=== PATIENT | male | born 1960 | race Caucasian/White ===

== ENCOUNTER → 2018-03-30 | Outpatient (CLI) | payer MEDICARE ==
[~2018-03-30] VITALS: Ht 177.8 cm; Wt 83.5 kg
[~2018-03-30] MED LIST: AMBEREN; CALCIUM 500 +1 EAC5; CARVEDILOL12.5 MG; COUMADIN 5 MG TA5 M1; ENALAPRIL MALEAT5 M2; FISHOIL; LANOXIN 0.250.25 M1; LASIX 40 MG TAB40 M2; NORCO 5-325 TA1 EACH PO; PROTONIX40 M2; SPIRONOLACTONE25 M1; TOPROL XL50 MG; TYLENOL EX-STR500 M2; VITAMIN B-12500 MCG; VITAMIN E400 UNIT; VITAMINC500
[2018-03-30 09:52] LABS: HEMATOCRIT 48.5 % (42.0-52.0); HEMOGLOBIN 16.2 gm/dL (14.0-18.0); MCH 31.6 pg (26.0-34.0); MCHC 33.5 g/dL (28.0-37.0); MCV 94.4 fL (80.0-100.0); MPV 8.8 fl. (7.2-11.1); RBC 5.13 mil/uL (4.50-6.00); RDW-CV 14.8 % (10.5-14.5)
[2018-03-30 10:02] LABS: CALCIUM 9.1 mg/dL (8.5-10.1); CREATININE 0.7 mg/dL (0.6-1.3); POTASSIUM 3.6 mmol/L (3.5-5.1)
[2018-03-30 10:04] LABS: APTT 30.7 Seconds (25.0-31.3); INR 1.2; PROTIME 11.8 Seconds (9.20-11.50)
[2018-03-30 10:10] VITALS: BP 114/75
[2018-03-30 15:24] VITALS: BP 114/71
[2018-03-30 15:45] VITALS: BP 114/71
[2018-03-30 16:04] VITALS: BP 114/71
[2018-03-30 16:18] VITALS: BP 114/71
--- NOTE | 2018-03-30 17:32 | CARD ---
[address] [address] CARDIAC CATH REPORT Name: ADRIAN MOSES Room: [facility] BABITA Flaco#: [id number] Admission: 03/30/18 Attend Phys: Jorge Alcala MD, F Discharge: Date of : 58 Report #: [id number] THIS REPORT FOR: //name// APPROVED REPORT Study performed: 03/30/2018 13:35:39 Patient Status: Out-Patient Room #: Event Personnel: Jorge Alcala Pc Support Specialist, Taylor Saunders Lemon Grower, Park Schroeder RTR Monitor, Regan Schafer (R) Scrub Exam: Generator Change for a Single Chamber Permanent Pacemaker Indications: pacer dorian The patient is a 58 year-old male with a history of Atrial Fibrillation. Patient Info Anticoagulant Therapy: off warfarin for 5 days Conscious Sedation Fentanyl 25 mcg Implanted Devices: single chamber biotronic pacemaker generator Explanted Devices: dual chamber medtronic pacemaker generator Procedure The patient underwent informed consent. We discussed the details of the procedure including the risks, which include, but not limited to bleeding, infection, vascular damage, cardiac perforation, and pneumothorax. He understood these risks and was willing to proceed. As such, he was brought to the EP/Cardiac Catheterization laboratory in a fasting and sedated state and prepped and draped in a The patient underwent conscious sedation, with no related complications. The patient was brought to the EP/Cardiac Catheterization laboratory and the left chest and shoulder were prepped and draped in a sterile manner. The left subclavian region was infiltrated with 2% Lidocaine subcutaneous anesthesia. A transverse incision was made in [place] [address] CARDIAC CATH REPORT Name: ADRIAN MOSES Room: [facility]#: [id number] Admission: 03/30/18 Attend Phys: Jorge Alcala MD, F Discharge: Date of : 58 Report #: [id number] Capturing and sensing thresholds were verified. Electrode Parameters R Wave: 7.8 mv Ventricular Threshold: 1.0 v @ .4 ms Ventricular Resistance: 741 ohm the chronic atrial lead was caped and sutured Generator Change The lead was attached to the appropriate receptacle on the new pulse generator and setscrews firmly tightened to insure adequate contact and stability. Complications The patient tolerated the procedure well and there were no complications associated with the procedure. Findings Specimens Removed: Yes old pacemaker generator Estimated Blood Loss: 5 cc Conclusion successful replacement of the permanent pacemaker generator and caping of the chronic atrial lead <ELECTRONICALLY SIGNED> By: Jorge Alcala MD, [facility] 03/30/18 1731 [id number] Phi Alcala MD, FACC /INF
== END | disposition home or self-care (01) ==
LOC: M.CL 09:01
PROVIDERS: Internal Medicine Cardiovascular Disease
DX: Z45.010 Encounter for checking and testing of cardiac pacemaker pulse generator [battery] (principal); I48.2 Chronic atrial fibrillation; I11.0 Hypertensive heart disease with heart failure; I50.22 Chronic systolic (congestive) heart failure; I42.9 Cardiomyopathy, unspecified; I49.5 Sick sinus syndrome; F17.210 Nicotine dependence, cigarettes, uncomplicated; Z98.890 Other specified postprocedural states; Z79.899 Other long term (current) drug therapy; Z79.01 Long term (current) use of anticoagulants

== ENCOUNTER → 2019-01-25 | Outpatient (CLI) | payer OTHER ==
[2019-01-25 07:30] LABS: INR 1.2; PROTIME 12.3 Seconds (9.20-11.50)
== END ==
LOC: M.LAB 06:44
PROVIDERS: Student in an Organized Health Care Education/Training Program
DX: Z79.01 Long term (current) use of anticoagulants (principal)

== ENCOUNTER 2019-01-26 14:47 | Inpatient (IN) | payer OTHER ==
[~2019-01-26] VITALS: Ht 177.8 cm; Wt 83.9 kg
--- NOTE | ~2019-01-26 | CON ---
[address] [address] CONSULTATION Name: ADRIAN MOSES Denilson Room: [address] IN [facility].#: [id number] Admission: 01/26/19 Attend Phys: Keith Dooley Discharge: Date of : 58 Report #: [id number] THIS REPORT FOR: //name// CC: Jorge Lopez DATE OF SERVICE: 01/27/2019 REQUESTING PHYSICIAN: Dr. Lopez. REASON FOR CONSULTATION: Preoperative ERCP, possible abdominal surgery. HISTORY OF PRESENT ILLNESS: The patient is a 58-year-old white male who presented with abdominal pain. It has been going on for several weeks. He had an outpatient colonoscopy, now he needs an ERCP. He now has the need for a possible cholecystectomy and he needs an ERCP. He has been off of his Coumadin for 3 or 4 days for his colonoscopy. He took 1 dose after his colonoscopy and then again presented with abdominal pain. He denies chest pain or pressure. He has underlying permanent pacemaker and denies any prior history of stroke, TIA or any new neuro symptoms, slurred speech, numbness, weakness or visual changes. PAST MEDICAL HISTORY: Significant for gastric bypass, atrial fibrillation, sick sinus syndrome, permanent pacemaker, hypertension. SOCIAL HISTORY: He is a tobacco user, active. MEDICATIONS: Warfarin 5 mg daily, Protonix, Lanoxin 0.25 mg daily, enalapril 5 mg p.o. b.i.d., Coreg 12.5 mg p.o. b.i.d. and vitamins. REVIEW OF SYSTEMS: GENERAL: No fevers or chills. PULMONARY: No wheezing or cough. CARDIOVASCULAR: No chest pain or pressure. No orthopnea, no PND. MUSCULOSKELETAL: No edema. PULMONARY: No shortness of breath. GASTROINTESTINAL: Positive abdominal pain. Positive cramping. PHYSICAL EXAMINATION: VITAL SIGNS: Blood pressure is 128/76, temperature is 36.7, pulse [place] 72. [place] [address] CONSULTATION Name: ADRIAN MOSES Room: [address] IN [facility]#: [id number] Admission: 01/26/19 Attend Phys: Keith Dooley Discharge: Date of : 58 Report #: [id number] GENERAL: This is a pleasant, thin, middle-aged male. He is alert, in no apparent distress. HEENT: Eyes are intact. No facial asymmetry. NECK: Supple. No jugular venous distention. CARDIOVASCULAR: Regular. I cannot hear a murmur. LUNGS: Clear to auscultation. ABDOMEN: Soft, nontender. EXTREMITIES: No peripheral edema. LABORATORY DATA: Sodium is 140, potassium 3.5, BUN is 11, creatinine is 0.7, bilirubin is 4.7, direct bilirubin is 2.9. Troponin I is 0.06. DIAGNOSTIC STUDIES: Abdominal CT showed findings concerning for cholecystitis, heterogeneous liver, possible hepatitis. ECG demonstrates a bundle branch block pattern with underlying atrial fibrillation and PVCs. IMPRESSION: 1. Preoperative cardiovascular examination. He is relatively low risk for abdominal surgery and/or endoscopic retrograde cholangiopancreatography. I see no contraindication. 2. Warfarin anticoagulation. He has been off of his warfarin for the past 4-5 days. I do not have his most recent echocardiogram. He has no documented history of stroke or transient ischemic attack, but I would resume Lovenox at some point postoperatively. 3. Hypertension, stable. 4. Acute cholecystitis as noted above. By: [id number] Yousif MD, FACC /nt
--- NOTE | ~2019-01-26 | CON ---
[address] [address] CONSULTATION Name: MADELINEPRATIBHAADRIAN Room: [address] IN [facility].#: [id number] Admission: 01/26/19 Attend Phys: Keith Dooley Discharge: Date of : 58 Report #: [id number] THIS REPORT FOR: //name// CC: Jorge Lopez DATE OF SERVICE: 01/27/2019 HISTORY OF PRESENT ILLNESS: This is a pleasant 58-year-old gentleman with past medical history significant for AFib, on chronic anticoagulation with Coumadin, history of pacemaker placement, who is presenting for evaluation of epigastric abdominal pain. The patient reports the pain has been on and off for the last few weeks, but it became particularly severe yesterday. This prompted his visit to the hospital. The patient reports the pain is located in the epigastrium is severe burning in intensity, occasionally 10/10, nonradiating. The patient reports no specific association with food or bowel movements and has been more or less constant since yesterday. The patient describes nausea, but no vomiting and denies prior episodes of jaundice. PAST MEDICAL HISTORY: The patient has a history of AFib, on chronic anticoagulation with Coumadin. PAST SURGICAL HISTORY: The patient had a gastric bypass in 2005 for weight loss and he had pacemaker replaced last year. FAMILY HISTORY: There is no family history of colorectal pancreatic malignancy. SOCIAL HISTORY: The patient has a 52-zilo-gcxy smoking history. Denies any alcohol or recreational drug use. REVIEW OF SYSTEMS: A comprehensive 10-point review of systems is negative except for what was mentioned in the HPI. PHYSICAL EXAMINATION: VITAL SIGNS: Temperature 36.7, pulse rate 72, blood pressure 128/76, respiratory rate 16. GENERAL: The patient is alert, awake, oriented x 3. HEENT: Pupils are equal, round, reactive to light and accommodation. Scleral icterus is present. Mucous membranes are moist. There is no congestion. LUNGS: Clear to auscultation bilaterally. CARDIOVASCULAR: Rate and rhythm regular. S1, S2 present. ABDOMEN: Soft. There is some mild tenderness in the epigastric and right upper quadrant region. EXTREMITIES: Warm, well perfused. There is no edema. SKIN: [place] [address] CONSULTATION Name: ADRIAN MOSES Room: [address] IN [facility]#: [id number] Admission: 01/26/19 Attend Phys: Keith Dooley Discharge: Date of : 58 Report #: [id number] LABORATORY DATA: WBC count 5.4, hemoglobin 14.0, hematocrit 42.8, platelet count 159. Sodium 140, potassium 3.5, chloride 105, bicarbonate 24, BUN 11, creatinine 0.7. Total bilirubin on presentation 2.6, today 4.7, direct bilirubin 2.9, AST on presentation 145, 275 today. ALT on presentation 85, 220 today. Alkaline phosphatase on presentation 131, 53 today. IMAGING: CT abdomen and pelvis findings concerning for cholecystitis, either acute or chronic. Correlate with the right upper quadrant symptoms. There is moderate pericholecystic fluid, cholelithiasis and cystic duct enlargement. Possible loosened gallstones are present suggesting cholesterol gallstones. Heterogeneous liver could be reactive or present hepatitis. No intrahepatic or extrahepatic biliary ductal dilatation. Fat-containing supraumbilical midline hernia without bowel herniation. Mild stranding of the mesenteric fat could represent low grade omental infarction, several other nonacute findings. Abdominal ultrasound performed today demonstrates cholelithiasis with gallbladder wall thickening and minimal pericholecystic fluid. Negative sonographic Stockton sign. No evidence of biliary ductal dilation. Acute cholecystitis is a concern. ASSESSMENT AND PLAN: A pleasant 58-year-old gentleman with history as outlined above, presenting for evaluation of right upper quadrant pain. 1. Acute cholecystitis. The patient does appear to have acute cholecystitis with evidence of acute pericholecystic fluid collection. Although this is not described on the CT scan. I do note the presence of gas in the gallbladder and within the cystic duct suggesting ongoing infection. I discussed with Surgery possibility of a cholecystectomy. They appeared to be concerned about the rise in his bilirubin, but his bile duct appeared normal. I suspect this may be related to extrahepatic biliary ductal obstruction/Mirizzi syndrome. 2. Elevated bilirubin. The patient's bilirubin went from 2.6 to 4.7 today. Again, I suspect this is related to inflammation and edema causing compression of the bile duct. Since the patient had a gastric bypass surgery, it would be very difficult to perform an ERCP on him. If biliary ductal obstruction remains a concern, an MRCP can be considered and further PTC can be considered for biliary decompression. I will also order some autoimmune labs to rule out acute autoimmune hepatitis. He does not have an enlarged spleen and his platelet count is normal and therefore, I suspect this is not related to underlying cirrhosis. DISPOSITION: The patient wished to go home to address some issues, but due to [facility] [place] [address] [place] [address] CONSULTATION Name: ADRIAN MOSES Room: [address] IN [facility].#: [id number] Admission: 01/26/19 Attend Phys: Keith Dooley Discharge: Date of : 58 Report #: [id number] the presence of acute gallbladder dilation and the presence of gas in the gallbladder wall, I strongly recommend against discharging him home. By: [id number] Donaldson MD /anthony
[~2019-01-26 14:47] MED LIST changes: -AMBEREN; -CALCIUM 500 +1 EAC5; +CALCIUM 500 +1 EAC5 PO; -CARVEDILOL12.5 MG; +CARVEDILOL12.5 MG PO; -COUMADIN 5 MG TA5 M1; +COUMADIN 5 MG TA5 M1 PO; -ENALAPRIL MALEAT5 M2; +ENALAPRIL MALEAT5 M2 PO; +FISH OIL 1,001000 M2 PO; -FISHOIL; -LANOXIN 0.250.25 M1; +LANOXIN 0.250.25 M1 PO; -PROTONIX40 M2; +PROTONIX40 M2 PO; -VITAMIN B-12500 MCG; +VITAMIN B-12500 MCG PO; -VITAMIN E400 UNIT; +VITAMIN E400 UNIT PO; -VITAMINC500; +VITAMINC500 PO; +[UNRECOGNIZED DRUG - REMARK] PO
[2019-01-26 15:03] VITALS: BP 129/81
[2019-01-26 15:36] LABS: ABSOLUTE LYMPHOCYTES 1.1 thou/uL (0.8-5.3); ABSOLUTE MONOCYTES 0.7 thou/uL (0.0-1.2); BASOPHILS 0.6 %; EOSINOPHILS 0.5 %; HEMATOCRIT 46.4 % (42.0-52.0); HEMOGLOBIN 15.3 gm/dL (14.0-18.0); MCH 30.9 pg (26.0-34.0); MCHC 32.9 g/dL (28.0-37.0); MPV 8.8 fl. (7.2-11.1); NUCLEATED RBCS 0 /100WBC; PLATELET COUNT* 186 thou/uL (150-400); POLYS 75.9 %; RBC 4.94 mil/uL (4.50-6.00); WBC 7.9 thou/uL (4.0-11.0)
[2019-01-26 15:45] LABS: ANION GAP 7 mmol/L (7-16); BUN 16 mg/dL (7-18); CALCIUM 9.4 mg/dL (8.5-10.1); CHLORIDE 103 mmol/L (98-107); CO2 28 mmol/L (21-32); CREATININE 0.9 mg/dL (0.6-1.3); GLUCOSE 118 mg/dL (70-99); POTASSIUM 3.9 mmol/L (3.5-5.1); SODIUM 138 mmol/L (136-145)
[2019-01-26 15:48] LABS: INR 1.2
[2019-01-26 15:57] LABS: ALBUMIN 3.6 g/dL (3.4-5.0); ALKALINE PHOSPHATASE 130 U/L (46-116); LIPASE 92 U/L (73-393); SGOT 145 U/L (15-37); SGPT 85 U/L (30-65); TOTAL BILIRUBIN 2.6 mg/dL (<0.1-1.0); TOTAL PROTEIN 7.2 g/dL (6.4-8.2); TROPONIN-I LEVEL <0.06 ng/mL (<0.06)
[2019-01-26 17:37] LABS: URINE BILIRUBIN NEGATIVE (Negative); URINE BLOOD NEGATIVE (Negative); URINE CLARITY CLEAR; URINE COLOR YELLOW; URINE GLUCOSE-RANDOM NEGATIVE (Negative); URINE KETONES 1+ (Negative); URINE LEUKOCYTES-REFLEX NEGATIVE (Negative); URINE NITRITE-REFLEX NEGATIVE (Negative); URINE PROTEIN NEGATIVE (Negative)
[2019-01-26 20:02] VITALS: BP 143/83
[2019-01-26 20:30] VITALS: BP 132/72
[2019-01-27] VITALS: BP 113/70
[2019-01-27 04:00] VITALS: BP 118/64
--- NOTE | 2019-01-27 04:04 | NUR ---
RECEIVED PT BY CART FROM ED AT APPROX 1999. PT IS AWAKE AND ORIENTED X4. VSS ON ROOM AIR. PLACED ON TELE MONITOR TRACING AFIB WITH PACED VENTRICULAR COMPLEXES. PT DENIES PAIN AND DISCOMFORT. PT IS ADVISED TO HAVE NOTHING BY MOUTH. PT IS ORIENTED TO THE USE OF CALL LIGHT, AND ORIENTED ON ROOM SET UP. HOURLY ROUNDING DONE FOR PT SAFETY.
[2019-01-27 05:01] LABS: HEMATOCRIT 42.8 % (42.0-52.0); MCH 30.5 pg (26.0-34.0); MCHC 32.7 g/dL (28.0-37.0); MCV 93.2 fL (80.0-100.0); MPV 9.1 fl. (7.2-11.1); RBC 4.59 mil/uL (4.50-6.00); RDW-CV 13.8 % (10.5-14.5); WBC 5.4 thou/uL (4.0-11.0)
[2019-01-27 05:45] LABS: CALCIUM 8.6 mg/dL (8.5-10.1); CREATININE 0.7 mg/dL (0.6-1.3); DIRECT BILIRUBIN 2.9 mg/dL (<0.1-0.3); MAGNESIUM 1.8 mg/dL (1.8-2.4); PHOSPHORUS* 3.2 mg/dL (2.5-4.9); POTASSIUM 3.5 mmol/L (3.5-5.1); TOTAL BILIRUBIN 4.7 mg/dL (<0.1-1.0); TOTAL PROTEIN 5.9 g/dL (6.4-8.2)
[2019-01-27 08:00] VITALS: BP 128/76
[2019-01-27 11:30] VITALS: BP 111/63; BP 112/71
[2019-01-27 16:00] VITALS: BP 119/69
[2019-01-27 17:23] LABS: % SATURATION 70 % (20-39); IRON 233 ug/dL (50-175)
--- NOTE | 2019-01-27 18:00 | NUR ---
ASSUMED PT CARE AT 0700, PT A&O X4, VSS, AEROSPACE ENGINEER OFFICER ARMAMENT TRACING AFIB, UP AD ADITI. PT ADVISED TO HAVE NOTHING BY MOUTH FOR GI PROCEDURE TOMORROW, PT STATES UNDERSTANDING. ABD ULTRASOUND COMPLETED, PT AND SPOUSE EDUCATED ON FINDINGS. HOURLY ROUNDING COMPLETED.
[2019-01-27 20:00] VITALS: BP 124/76
[2019-01-28] VITALS: BP 117/70
[2019-01-28 04:00] VITALS: BP 127/77
--- NOTE | 2019-01-28 04:19 | NUR ---
ASSUMED PT CARE AT APPROX 1930. PT IS AWAKE AND ORIENTED X4. VSS ON ROOM AIR. SORTING MACHINE OPERATOR IN PLACE TRACING AFIB WITH PACED VENTRICULAR COMPLEXES. ASSESSMENT DONE AND CHARTED. PT DENIES PAIN. MAINTAINED PT ON NPO. CALL LIGHT WITHIN REACH. HOURLY ROUNDING DONE FOR PT SAFETY.
[2019-01-28 04:38] LABS: ABSOLUTE EOSINOPHILS 0.1 thou/uL (0.0-0.7); ABSOLUTE LYMPHOCYTES 1.1 thou/uL (0.8-5.3); ABSOLUTE MONOCYTES 0.5 thou/uL (0.0-1.2); BASOPHILS 0.8 %; HEMATOCRIT 42.5 % (42.0-52.0); HEMOGLOBIN 13.9 gm/dL (14.0-18.0); LYMPHOCYTES 22.4 %; MCH 30.5 pg (26.0-34.0); MCHC 32.7 g/dL (28.0-37.0); MCV 93.3 fL (80.0-100.0); MONOCYTES 11.6 %; MPV 8.7 fl. (7.2-11.1); NUCLEATED RBCS 0 /100WBC; PLATELET COUNT* 147 thou/uL (150-400); POLYS 63.2 %; RBC 4.56 mil/uL (4.50-6.00); RDW-CV 14.1 % (10.5-14.5); WBC 4.8 thou/uL (4.0-11.0)
[2019-01-28 05:15] LABS: ALBUMIN 2.9 g/dL (3.4-5.0); CALCIUM 8.5 mg/dL (8.5-10.1); CREATININE 0.7 mg/dL (0.6-1.3); POTASSIUM 3.3 mmol/L (3.5-5.1); TOTAL BILIRUBIN 3.2 mg/dL (<0.1-1.0); TOTAL PROTEIN 5.9 g/dL (6.4-8.2)
[2019-01-28 08:00] VITALS: BP 161/89
--- NOTE | 2019-01-28 08:00 | NUR ---
ASSUMED PT CARE AT 0700, PT A&O X4, UP AD ADITI, VSS, RA, GATEKEEPER TRACING AFIB. SURGERY CONSULTED, AWAITING OK FOR PROCEDURE OR TO BE TRANSFERRED TO ANOTHER HOSPITAL D/T PT HAVING PREVIOUS GASTRIC BYPASS. WILL CONT POC.
[2019-01-28 11:37] VITALS: BP 83/61
--- NOTE | 2019-01-28 13:08 | NUR ---
Pt is A&O. Resides at home with his . Pt needs to transfer to a higher level of care. Pt needs an ERCP, but has gastric bypass hx and he has a pacemaker that is not MRI compatible. CM contacted [facility], faxed info, awaiting on decision to accept. Following.
[2019-01-28 15:53] VITALS: BP 121/76
[2019-01-28 16:11] LABS: HEPATITIS B SURFACE AG Negative (Negative)
--- NOTE | 2019-01-28 16:54 | EKG ---
[place] [address] ELECTROCARDIOGRAM REPORT Name: ADRIAN MOSES Room: [address] ADM IN [facility]#: [id number] Admission: 01/26/19 Attend Phys: Keith Dooley Discharge: Date of : 58 Report #: [id number] THIS REPORT FOR: //name// [facility] ED Test Date: 2019-01-26 Test Time: 15:13:12 Pat Name: ADRIAN MOSES Department: Room: [facility] Gender: M Senior Analytic Consultant: MS : 1960 Requested By: Hannah Araya Order Number: [id number] MD: Freddy Hammond Measurements Intervals Rockfall Rate: 74 P: OK: QRS: -10 QRSD: 106 T: 98 QT: 373 QTc: 414 Interpretive Statements Afib and V-paced complexes No further analysis attempted due to paced rhythm Baseline wander in lead(s) I,II,aVR,V4 No previous ECG available for comparison Electronically Signed On 01-28-2019 16:54:13 CDT by Freddy Hammond [email or web address] <ELECTRONICALLY SIGNED> By: Freddy Hammond MD, [facility] 01/28/19 1654 1513 1513 Freddy Hammond MD, [facility] /EPI
--- NOTE | 2019-01-28 18:18 | NUR ---
PT A&O X4, VSS, UP AD ADITI, NPO AFTER MIDNIGHT FOR ERCP, PT STATES UNDERSTANDING OF DIET. UNABLE TO HAVE MRCP PACEMAKER LEADS ARE NOT MRI COMPATIBLE. HOURLY ROUNDING COMPLETED, DENIES ANY PAIN/DISTRESS.
[2019-01-28 20:00] VITALS: BP 103/68
[2019-01-29] VITALS (7 sets, daily range): BP systolic 108–144; BP diastolic 67–96
[2019-01-29 05:24] LABS: MAGNESIUM 1.8 mg/dL (1.8-2.4); POTASSIUM 3.8 mmol/L (3.5-5.1)
--- NOTE | 2019-01-29 05:48 | NUR ---
PATIENT PROGRESSING TOWARDS GOALS: PATIENT DENIES PAIN AND DISCOMFORT. VSS ON ROOM AIR. PATIENT TO HAVE ERCP TODAY. NPO POST MIDNIGHT. PT VERBALIZES UNDERSTANDING OF PLAN OF CARE. CALL LIGHT WITHIN REACH
[2019-01-29 06:54] LABS: ALBUMIN 2.9 g/dL (3.4-5.0); CALCIUM 8.6 mg/dL (8.5-10.1); CREATININE 0.8 mg/dL (0.6-1.3); POTASSIUM 3.8 mmol/L (3.5-5.1); TOTAL BILIRUBIN 1.7 mg/dL (<0.1-1.0); TOTAL PROTEIN 5.6 g/dL (6.4-8.2)
--- NOTE | 2019-01-29 18:00 | NUR ---
ASSUMED PT CARE AT 0700, A&O X4, VSS, RA, CADMIUM LIQUOR MAKER TRACING AFIB, UP AD ADITI. PT HAD LAP SUKHWINDER THIS SHIFT, TOLERATED WELL, RATES PAIN 3/10. LAP SITES COVERED IN DERMABOND SHOW NO REDNESS OR SWELLING. EDUCATED PT AND FAMILY ON OUTCOME AND CARES. HOURLY ROUNDING COMPLETED.
[2019-01-30 04:00] VITALS: BP 98/74
--- NOTE | 2019-01-30 07:13 | NUR ---
RECEIVED REPORT AND ASSUMED CARE AT 1900. VSS. CARDIAC MONITORING IN PLACE. PT REPORTS PAIN, PRN MEDICATION ADMIN PER ORDERS. ASSESSMENT COMPLETED CHARTED. PT UP AD ADITI IN ROOM, ON RA. BED LOCKED IN LOWEST POSITION, CALL LIGHT WITHIN REACH. HOURLY ROUNDING COMPLETED AND ALL NEEDS MET.
[2019-01-30 07:41] VITALS: BP 98/74
[2019-01-30 08:00] VITALS: BP 117/79
[2019-01-30 11:47] VITALS: BP 121/76
--- NOTE | 2019-01-30 13:26 | NUR ---
ASSUMED CARE OF PATIENT THIS AM AT 0730. PATIENT IS ALERT AND ORIENTED X 4. HE C/O RIGHT SHOULDER PAIN THIS AM. HE ALSO C/O INCREASED URGE TO VOID AND DECREASED U.O. BLADDER SCAN PERFORMED. SCAN SHOWED >[address] TSAI NOTIFIED. STRAIGHT CATH PERFORMED AND 1000 ML DRAINED. PATIENT MEDICATED FOR PAIN PO WITH GOOD RESULTS. PATIENT STARTED ON FLOWMAX. PATIENT EDUCATED ON NEW MEDICATIONS. TELE SHOWS A FIB WITH VENTRICULAR ECTOPIES. WILL CONTINUE TO MONITOR. IS IN AT THE BEDSIDE.
[2019-01-30] MEDS ORDERED: FLOMAX0.4 MG PO (13:31)
[2019-01-30] MEDS ORDERED: HYDROCODON-ACE1 EAC7 PO (17:15)
--- NOTE | 2019-01-31 14:06 | PATH ---
[facility] [address] [place] [address] PATHOLOGY RPT PROCEDURE Name: ADRIAN MOSES Room: [address] IN [facility].#: [id number] Admission: 01/26/19 Date of : 58 Discharge: 01/30/19 Report #: [id number] Path Case #: [id number] [facility] Accession Number: [id number] . 01 Material submitted: . gallbladder - GALLBLADDER WITH CONTENTS . 01 Clinical history: . Cholecystitis . 02 Diagnosis: Gallbladder: - Chronic follicular and acute cholecystitis, cholesterolosis and cholelithiasis. (LEROY:pit 01/31/2019) QTP/01/31/2019 . 02 Electronically signed: . Antonio Zarate MD, Pathologist NPI- [id number] . 01 Gross description: . The specimen is received in formalin, labeled "Adrian Moses, gallbladder with contents". Received is an intact gallbladder measuring 9.5 x 3.1 x 1.8 cm in greatest dimensions displaying a pink-rincon serosal surface. Opening the specimen reveals a velvety, bile-stained mucosa with mild, diffuse cholesterolosis, with a gallbladder wall thickness of 0.1 cm. Calculi are present displaying a light brown and smooth appearance, and no masses or lesions are noted grossly. Bean Sprout Grower sections, to include the proximal margin, are submitted in cassette A1. (CAA; 01/30/2019) QAC/QAC . 02 Pathologist provided ICD-10: K80.12, K82.4 . 02 CPT . 644566 Specimen Comment: A courtesy copy of this report has been sent to Specimen Comment: [phone], , , . Specimen Comment: Report sent to ,DR OWENS,DR MENENDEZ / DR GRISSOM Performed at: [address] [facility] [id number] MD Stevan Brantley MD Phone: [phone] Performed at: [address] [id number] [place] [address] PATHOLOGY RPT PROCEDURE Name: ADRIAN MOSES Room: [address] IN [facility]#: [id number] Admission: 01/26/19 Date of : 58 Discharge: 01/30/19 Report #: [id number] Path Case #: [id number] [facility] MD Phone: [phone]
== END 2019-01-30 18:00 | disposition home or self-care (01) | DRG 417 ==
LOC: M.ERS 14:47 → M.TBA-ER 16:42 → M.2W 16:42
PROVIDERS: Family Medicine; Physician Assistant; Surgery; ADMIT Internal Medicine
PROC: 0FT44ZZ Resection of Gallbladder, Percutaneous Endoscopic Approach (ICD-10-PCS; principal; 2019-01-29)
PROC: BF121ZZ Fluoroscopy of Gallbladder using Low Osmolar Contrast (ICD-10-PCS; principal; 2019-01-29)
DX: K80.12 Calculus of gallbladder with acute and chronic cholecystitis without obstruction (principal); K55.069 Acute infarction of intestine, part and extent unspecified; B17.9 Acute viral hepatitis, unspecified; D68.59 Other primary thrombophilia; I10 Essential (primary) hypertension; K21.9 Gastro-esophageal reflux disease without esophagitis; F17.210 Nicotine dependence, cigarettes, uncomplicated; K42.9 Umbilical hernia without obstruction or gangrene; I48.2 Chronic atrial fibrillation; I87.8 Other specified disorders of veins; Z98.84 Bariatric surgery status; Z79.01 Long term (current) use of anticoagulants; Z95.0 Presence of cardiac pacemaker; Z79.899 Other long term (current) drug therapy

== ENCOUNTER → 2019-12-31 | Outpatient (CLI) | payer OTHER ==
[~2019-12-31] MED LIST changes: +FLOMAX0.4 MG PO; +HYDROCODON-ACE1 EAC7 PO
== END ==
LOC: M.RAD 11:22
DX: I50.22 Chronic systolic (congestive) heart failure (principal); I49.5 Sick sinus syndrome; I42.0 Dilated cardiomyopathy; I48.21 Permanent atrial fibrillation; Z72.0 Tobacco use